=== PATIENT | male | born 1990 | race American Indian/Alaskan Native ===

== ENCOUNTER 2021-12-13 07:37 | Emergency (ER) | payer OTHER ==
[2021-12-13 08:04] VITALS: BP 125/74
[2021-12-13] MEDS ORDERED: DEXAMETHASONE 4 MG TAB PO ONE (08:45)
[2021-12-13] MEDS ORDERED: diphenhydrAMINE 25 MG CAP PO ONE (08:45)
[2021-12-13] MEDS ORDERED: KETOROLAC 10 MG TAB PO ONE (08:45)
[2021-12-13] MEDS ORDERED: METOCLOPRAMIDE 10 MG TAB PO ONE (08:46)
--- NOTE | 2021-12-13 09:57 | Emergency Department Report ---
ED Headache HPI - General Chief Complaint: Headache Stated Complaint: HEAD PAIN Time Seen by Provider: 12/13/21 08:32 - History of Present Illness Initial Comments: 31 yom with no pmh presents to ed for evaluation of headache that started last night. He states that headache is in frontal area mostly with some aching in occipital and neck area. He denies injury, n/v, dizziness, vision changes, and photophobia. He states that pain is 9/10 and unrelieved by tylenol and motrin. Timing/Duration: constant Quality: severe Head Injury Location: frontal Recent Head Trauma: no recent headache/trauma, occasional headaches Associated Symptoms: facial pain, nasal congestion, nasal drainage. denies: fatigue, fever/chills, flushing, loss of consciousness, nausea/vomiting, numbness in legs/feet, seizures, sinus infection, stiff neck, vision changes, weakness Allergies/Adverse Reactions: Allergies No Known Allergies Allergy (Unverified 12/13/21 08:01) Home Medications: Ambulatory Orders Butalb/Acetaminophen/Caffeine [Fioricet 50-300-40 mg CAP] 1 cap PO Q6HR PRN #12 cap 12/13/21 Cetirizine HCl [Zyrtec 10mg tab] 10 mg PO DAILY #15 tab 12/13/21 ED Review of Systems ROS: Stated complaint: HEAD PAIN Other details as noted in HPI Constitutional: denies: chills, diaphoresis, fever, weakness Eyes: eye pain. denies: eye discharge, vision change ENT: denies: ear pain, throat pain, dental pain, congestion Respiratory: denies: cough, orthopnea, shortness of breath, SOB with exertion Cardiovascular: denies: chest pain, palpitations, dyspnea on exertion, orthopnea, edema, syncope Endocrine: no symptoms reported Gastrointestinal: hematemesis Genitourinary: denies: urgency, dysuria, frequency, hematuria Musculoskeletal: denies: back pain Skin: denies: rash, lesions Neurological: headache. denies: weakness, numbness, paresthesias Psychiatric: denies: anxiety Hematological/Lymphatic: denies: easy bleeding, easy bruising ED Past Medical Hx - Medications Home Medications: Home Medications Medication Instructions Recorded Confirmed Last Taken Type Butalb/Acetaminophen/Caffeine 1 cap PO Q6HR PRN #12 cap 12/13/21 Unknown Rx [Fioricet 50-300-40 mg CAP] Cetirizine HCl [Zyrtec 10mg tab] 10 mg PO DAILY #15 tab 12/13/21 Unknown Rx ED Physical Exam - General Limitations: No Limitations General appearance: alert, in no apparent distress - Head Head exam: Absent: atraumatic, normocephalic - Eye Eye exam: Present: normal appearance. Absent: conjunctival injection - ENT ENT exam: Present: other (bilateral nasal mucosa edema, tenderness to frontal and maxillary sinus areas. ). Absent: normal exam - Neck Neck exam: Present: normal inspection, full ROM. Absent: tenderness, lymphadenopathy - Respiratory Respiratory exam: Present: normal lung sounds bilaterally. Absent: respiratory distress, wheezes, rales, rhonchi, stridor, chest wall tenderness - Cardiovascular Cardiovascular Exam: Present: regular rate, normal heart sounds - GI/Abdominal GI/Abdominal exam: Present: soft, normal bowel sounds. Absent: distended, tenderness, guarding, rebound, rigid - Extremities Exam Extremities exam: Present: normal inspection - Back Exam Back exam: Present: normal inspection. Absent: CVA tenderness (R), CVA tenderness (L) - Neurological Exam Neurological exam: Present: alert, oriented X3 - Psychiatric Psychiatric exam: Present: normal affect, normal mood, depressed - Skin Skin exam: Present: warm, dry, intact, normal color ED Course Vital Signs 12/13/21 08:02 Temperature 98.5 F Pulse Rate 83 Respiratory 16 Rate Blood Pressure 125/74 [Right] O2 Sat by Pulse 97 Oximetry - Reevaluation(s) Reevaluation #1: 12/13/21 09:55 Headache resolved ED Medical Decision Making - Medical Decision Making 31 yom with no pmh presents to ed for evaluation of headache that started last night. He states that headache is in frontal area mostly with some aching in occipital and neck area. He denies injury, n/v, dizziness, vision changes, and photophobia. He states that pain is 9/10 and unrelieved by tylenol and motrin. Headache resolved after medication. Nasal mucosal edema and location of pain consistent with sinus headache. Patient will be sent home with Zyrtec daily for sinus and prn Fiorcet for headache. He was advised to follow up with pcp or in the ED if worsening symptoms. He verbalized understanding of and agreement with plan of care. Critical care attestation.: If time is entered above; I have spent that time in minutes in the direct care of this critically ill patient, excluding procedure time. ED Disposition Clinical Impression: Headache Qualifiers: Headache type: unspecified Headache chronicity pattern: acute headache Intractability: not intractable Qualified Code(s): R51.9 - Headache, unspecified Disposition: 01 HOME / SELF CARE / HOMELESS Is pt being admited?: No Does the pt Need Aspirin: No Condition: Stable Instructions: General Headache Without Cause Additional Instructions: Take medications as prescribed. Follow-up with primary care provider or in the emergency department if worsening symptoms. Prescriptions: Butalb/Acetaminophen/Caffeine [Fioricet 50-300-40 mg CAP] 1 cap PO Q6HR PRN #12 cap PRN Reason: Headache Cetirizine HCl [Zyrtec 10mg tab] 10 mg PO DAILY #15 tab Referrals: FRANCE ROMERO MD [Referring] - 3-5 Days Time of Disposition: 09:57
== END 2021-12-13 10:35 | disposition home or self-care (01) ==
LOC: ED 07:37
DX: R51.9 Headache, unspecified (principal); Z79.899 Other long term (current) drug therapy
CPT/HCPCS: 99282; J8540